=== PATIENT | female | born 1945 | race Caucasian/White ===

== ENCOUNTER → 2016-11-02 | Outpatient (CLI) | payer OTHER ==
--- NOTE | 2016-11-18 12:17 | MA ---
Screening Digital Mammogram With iCAD Analysis Clinical Indications: Routine screening. Her maternal grandmother was diagnosed with breast cancer. Technique: Standard cephalocaudal and mediolateral oblique projections were obtained. This examination was processed by the iCAD computer aided detection system. Comparison: August 2015 and March 2014. Breast density: Type B; Scattered fibroglandular densities. Findings: CAD was reviewed. There is possible developing asymmetry in the upper outer right breast. No suspicious microcalcifications are seen. The left breast is stable in appearance. Impression: Possible developing right breast asymmetry requires further evaluation, BI-RADS 0 Recommendation: Spot compression assessment of the right breast with ultrasound suggested if the abnormality persists on diagnostic evaluation. [facility] will send a result letter to the patient. Negative mammography should not preclude additional workup of a clinically suspicious finding. The patient's information is entered into a reminder system with a target due date for her next mammogram. [facility]
== END ==
LOC: BMCIMAGING 08:44
PROVIDERS: ATTEND Internal Medicine
DX: Z12.31 Encounter for screening mammogram for malignant neoplasm of breast (principal)
CPT/HCPCS: G0202

== ENCOUNTER → 2016-12-13 | Outpatient (CLI) | payer OTHER ==
--- NOTE | 2016-12-13 17:18 | US ---
Thyroid ultrasound Indication: Nontoxic multinodular goiter. Assess nodules. Comparison: September 23, 2015 Technique: Grayscale thyroid ultrasound ws performed. Findings: Right thyroid gland measures 5.3 x 2.3 x 1.8 cm. A complex, mostly cystic hypoechoic nodule in the right thyroid gland with a central thickened septation currently measures 2.5 x 1.4 x 1.2 cm, previously measuring 2.3 x 1.4 x 1.2 cm. It has not changed. It is hypovascular compared to normal s urrounding thyroid gland. A subjacent smaller hypoechoic cystic nodule of 8 x 3 x 5 mm was previously not described or seen. Left thyroid gland measures 5 x 2.3 x 2.2 cm. Dominant central heterogeneous, mostly solid nodule of 3.7 x 2.1 x 2.3 cm, with increased vascularity, has increased from the previous 3.5 x 1.9 x 1.7 cm. I ts characteristics are otherwise not significantly changed. Thyroid isthmus is homogeneous a 6 mm. Impression: 1. No change in the dominant cystic hypoechoic nodule that is complex on the right. 2. Apparently a new hypoechoic cystic complex nodule just superior and medial to the previous one on the right, at 8 x 3 x 5 mm. 3. Interval increase in size of the hypervascular solid nodule on the left. FNA of this nodule is sug gested, if clinically appropriate.
== END ==
LOC: FIMAGING 10:10
PROVIDERS: ATTEND Internal Medicine Endocrinology, Diabetes & Metabolism
DX: E04.2 Nontoxic multinodular goiter (principal)

== ENCOUNTER → 2016-12-17 | Outpatient (CLI) | payer OTHER | LOC: BMCIMAGING 12:15 | PROVIDERS: ATTEND Internal Medicine | DX: Z12.39 Encounter for other screening for malignant neoplasm of breast (principal); R92.2 Inconclusive mammogram | CPT/HCPCS: G0206 ==

== ENCOUNTER 2016-12-27 22:43 | Emergency (ER) | payer OTHER ==
[2016-12-27 22:50] VITALS: RESP 16; TEMP 97.7
[2016-12-27] MEDS ORDERED: PROMETHAZINE HCL 25 MG/ML INJ ONE (23:02)
[2016-12-27] MEDS ORDERED: PROMETHAZINE HCL 25 MG/ML INJ IVP ONE (23:07)
[2016-12-27] MEDS ORDERED: NS 1,000 ML IV ONE (23:07)
--- NOTE | 2016-12-27 23:13 | EDPHY ---
H & P Stated Complaint: headache, nausea, thinks medication is making her sick Time Seen by Provider: 12/27/16 22:51 HPI/ROS: HPI The patient presents with headache which she describes as a pressure-like sensation which is bifrontal and has been present since about 9 o'clock tonight. It started slowly and has gradually been getting worse. She feels it in her jaw and her neck as well. She believes the cause of it is Bactrim which she took 2 hours prior to the start of her symptoms. This is a new medication for her that she was prescribed today after visiting [facility] for a prolonged case of sinusitis. She was also started on prednisone 20 mg today. She has been on clarithromycin for about 1 week. She has not had any fever, changes in her vision, photophobia, stiffness of her neck. She has not had any trauma to her head or neck. She feels as if she is about to developed an attack of her Meniere's disease. This usually presents with vertigo and nausea, but is unusual for her to have a headache. REVIEW OF SYSTEMS Constitutional: No fever, no chills. Eyes: No discharge. ENT: No sore throat. Cardiovascular: No chest pain, no palpitations. Respiratory: No cough, no shortness of breath. Gastrointestinal: No abdominal pain, no vomiting. Genitourinary: No hematuria. Musculoskeletal: No back pain. Skin: No rashes. Neurological: Positive for headache. PMHx: Meniere's disease, last episode about 1 year ago Soc Hx: Lives at home with her PHYSICAL General Appearance: Alert, somewhat anxious, no distress Eyes: Pupils equal and round no pallor or injection, extraocular movements are intact with increased vertigo with lateral gaze, no obvious nystagmus ENT, Mouth: Mucous membranes moist, clear rhinorrhea is present, posterior pharynx is slightly injected Respiratory: There are no retractions, lungs are clear to auscultation Cardiovascular: Regular rate and rhythm Gastrointestinal: Abdomen is soft and non-tender, no masses, bowel sounds normal Neurological: A&O, cranial nerves 2-12 intact, normal gait, moves all extremities, resting tremor of left hand Skin: Warm and dry, no rashes Musculoskeletal: Neck is supple non tender Extremities: symmetrical, full range of motion Psychiatric: Patient is oriented X 3, there is no agitation Source: Patient Exam Limitations: No limitations - Personal History Current Tetanus/Diphtheria Vaccine: Yes - Medical/Surgical History Hx Asthma: No Hx Chronic Respiratory Disease: No Hx Diabetes: No Hx Cardiac Disease: No Hx Renal Disease: No Hx Cirrhosis: No Hx Alcoholism: No Hx HIV/AIDS: No Hx Splenectomy or Spleen Trauma: No Other PMH: PMHx: MENIERE'S, PARKINSON'S, IBS. PSHx: tonsillectomy - Social History Smoking Status: Never smoked Constitutional: Initial Vital Signs Temperature (C) 36.5 C 12/27/16 22:46 Heart Rate 95 12/27/16 22:46 Respiratory Rate 16 12/27/16 22:46 Blood Pressure 156/91 H 12/27/16 22:46 O2 Sat (%) 99 12/27/16 22:46 O2 Delivery Mode Room Air Allergies/Adverse Reactions: doxycycline Allergy (Unknown, Verified 02/19/16 20:15) iodine Allergy (Unknown, Verified 02/19/16 20:15) Penicillins Allergy (Verified 02/19/16 20:15) Home Medications: Medication Instructions Recorded Triamterene/Hctz 37.5/25 05/15/13 [Maxzide-25 (RX)] Medical Decision Making ED Course/Re-evaluation: In the emergency room, the patient was given a dose of Phenergan 12.5 mg with complete resolution of her symptoms within about 15 minutes. She did not have any further headache. Her dizziness improved and she mostly felt sleepy. She rested in her room for about an hour and a half and continued to feel fine. I feel that her headache was likely related to the sinusitis and all of her symptoms caused her to have vertigo, consistent with her prior Menieres. It is unclear if her symptoms are related to her use of Bactrim, however given the uncertainty, I have advised her to stop taking it for now. We did discuss CT scan of her head and sinuses, however given the complete resolution of her symptoms here, I do not feel this is necessary to pursue today, as I doubt this is related to CVA, mass, subarachnoid hemorrhage. She is in agreement and would prefer not to have a CT scan done today. She is advised to return to the emergency room if she is worse in any way. Differential Diagnosis: This is a 71-year-old female with history of Meniere's disease, recent sinusitis , started today on prednisone and Bactrim by ENT, who now presents with a throbbing headache, dizziness, nausea. Differential diagnosis includes peripheral vertigo related to Meniere's disease, less likely CVA given normal neurologic exam, less likely allergic reaction given her symptomatology. Her sinusitis could be playing a role. Plan for IV Phenergan as this usually completely resolved her many years symptoms. We will continue to observe. - Data Points Medications Given: Discontinued Medications Sodium Chloride (Ns) 1,000 mls @ 0 mls/hr IV ONCE ONE PRN Reason: Wide Open Stop: 12/27/16 23:08 Last Admin: 12/27/16 23:20 Dose: 1,000 mls Promethazine HCl (Phenergan) 12.5 mg IVP ONCE ONE Stop: 12/27/16 23:08 Last Admin: 12/27/16 23:19 Dose: 12.5 mg Departure - Departure Disposition: Home, Routine, Self-Care Clinical Impression: Vertigo, Headache Condition: Good Instructions: Vertigo (ED) Additional Instructions: I would recommend that you stop taking the Bactrim that your prescribed, because it may be contributing to your symptoms. He should continue her other medications and follow up with your your nose and throat doctor. You should return to the emergency room if your worse in any way. Referrals: Jena Smith MD [Primary Care Provider] - As per Instructions
[2016-12-28 01:12] VITALS: BP 144/86; PULSE 99; O2SAT 98
== END 2016-12-28 01:11 | disposition home or self-care (01) ==
DX: R51 Headache (principal); R42 Dizziness and giddiness; G20 Parkinson's disease
CPT/HCPCS: 96361; 96374; 99284; J2550

== ENCOUNTER → 2017-08-26 | Outpatient (CLI) | payer OTHER | LOC: FIMAGING 13:36 | PROVIDERS: ATTEND Physician Assistant | DX: N88.8 Other specified noninflammatory disorders of cervix uteri (principal) ==

== ENCOUNTER → 2018-01-09 | Outpatient (CLI) | payer OTHER | LOC: FIMAGING 14:50 | PROVIDERS: ATTEND Obstetrics & Gynecology | DX: Z12.31 Encounter for screening mammogram for malignant neoplasm of breast (principal) ==